=== PATIENT | male | born 1945 | race African-American/Black ===

== ENCOUNTER 2021-08-23 12:14 | Inpatient (IN) | payer BC, MEDICARE ==
[~2021-08-23] VITALS: Ht 175.3 cm; Wt 68.0 kg
[2021-08-23 00:30] VITALS: BP 131/90
[2021-08-23] MEDS ORDERED: MAGNESIUM 2 G PREMIX 50 ML IV ONE (12:45)
[2021-08-23] MEDS ORDERED: METHYLPREDNISOLONE SOD SUCC 125 MG/2 ML VIAL IV ONE (12:45)
[2021-08-23 13:11] LABS: BASOPHILS % 0.6 % (0.0-2.0); EOSINOPHILS % 3.3 % (0.0-5.0); HEMATOCRIT. 45.5 % (42.0-52.0); HEMOGLOBIN. 14.7 g/dL (14.0-18.0); LYMPHOCYTES % 14.7 % (20.0-50.0); MEAN CORPUSCULAR HEMOGLOBIN 28.9 pg (28.0-32.0); MEAN CORPUSCULAR VOLUME 89.5 fL (80.0-94.0); MEAN PLATELET VOLUME 7.8 fl (7.4-10.4); MONOCYTES % 7.1 % (2.0-8.0); NEUTROPHILS % 74.3 % (40.0-76.0); PLATELET 328 x1000/uL (130-400); RED BLOOD CELL COUNT 5.08 mill/uL (4.7-6.1); RED CELL DISTRIBUTION WIDTH 13.7 % (11.6-14.6)
[2021-08-23 13:20] LABS: CHLORIDE 111 mEq/L (98-107)
[2021-08-23] MEDS ORDERED: CLONIDINE 0.1MG TABLET PO PRN (15:00)
[2021-08-23] MEDS ORDERED: DOCUSATE SODIUM 100MG CAPSULE PO PRN (15:00)
[2021-08-23] MEDS ORDERED: IPRATROPIUM/ALBUTEROL 0.5-3(2.5)MG/3ML NEB NEB PRN (15:00)
[2021-08-23] MEDS ORDERED: ACETAMINOPHEN 325MG TABLET PO PRN ×2 (15:00)
[2021-08-23] MEDS ORDERED: ZOLPIDEM TARTRATE 5MG TABLET PO PRN (15:00)
[2021-08-23] MEDS ORDERED: NITROGLYCERIN 0.4MG TABLET SL SL PRN (15:00)
[2021-08-23] MEDS ORDERED: TRAMADOL 50MG TABLET PO PRN (15:00)
[2021-08-23] MEDS ORDERED: LORAZEPAM 0.5MG TABLET PO PRN (15:00)
[2021-08-23] MEDS ORDERED: ONDANSETRON HCL 4MG/2ML INJ IV PRN (15:00)
[2021-08-23] MEDS ORDERED: MAGNESIUM/ALUMINUM HYDROXIDE/SIMETHICONE 30ML UDC PO PRN (15:00)
[2021-08-23] MEDS ORDERED: GUAIFENESIN 200MG/10ML SUGAR FREE UDC PO PRN (15:00)
[2021-08-23] MEDS ORDERED: NALOXONE HCL 0.4MG/ML VIAL IV PRN (15:15)
[2021-08-23] MEDS: LEVOFLOXACIN 500MG PREMIX 100 ML IV SCH (15:20)
[2021-08-23 15:53] LABS: *BARBITURATES SCREEN URINE NEGATIVE (NEGATIVE); *BENZODIAZEPINES SCREEN URINE NEGATIVE (NEGATIVE); *COCAINE SCREEN URINE NEGATIVE (NEGATIVE)
[2021-08-23 15:54] LABS: *AMPHETAMINES SCREEN URINE NEGATIVE (NEGATIVE); CANNABINOID URINE SCREEN NEGATIVE (NEGATIVE); METHADONE URINE SCREEN NEGATIVE (NEGATIVE); OPIATES URINE SCREEN NEGATIVE (NEGATIVE); PHENCYCLIDINE URINE SCREEN NEGATIVE (NEGATIVE)
[2021-08-23] MEDS: ENOXAPARIN 40MG/0.4ML SYR SUBCUT SCH (15:56)
[2021-08-23] MEDS ORDERED: DEXTROSE 50% WATER 50ML SYRINGE IV PRN (18:45)
[2021-08-23] MEDS: IPRATROPIUM/ALBUTEROL 0.5-3(2.5)MG/3ML NEB HHN SCH (18:51)
[2021-08-23] MEDS: INSULIN LISPRO 100 UNITS/ML SUBCUT SCH (21:00)
[2021-08-23] MEDS: BLOOD SUGAR DIAGNOSTIC STRIP TEST SCH (21:51)
[2021-08-23] MEDS: FUROSEMIDE 40MG/4ML VIAL IVP SCH (22:07)
[2021-08-23] MEDS: ASCORBIC ACID 500 MG TABLET PO SCH (22:08)
[2021-08-23] MEDS: SPIRONOLACTONE 25MG TABLET PO SCH (22:08)
[2021-08-23] MEDS: FAMOTIDINE 20MG TABLET PO SCH (22:09)
[2021-08-23] MEDS: METHYLPREDNISOLONE SOD SUCC 125 MG/2 ML VIAL IV SCH (22:10)
[2021-08-24] VITALS: BP 136/82
[2021-08-24 00:14] LABS: CREATINE KINASE 39 IU/L (39-308)
[2021-08-24 00:15] LABS: CREATINE KINASE MB FRACTION < 1.0 ng/mL (0.5-3.6)
[2021-08-24] MEDS ORDERED: AMLO5TAB88 PO (03:33)
[2021-08-24] MEDS ORDERED: PROP80TA4 PO (03:33)
[2021-08-24 04:00] VITALS: BP 131/98
[2021-08-24] MEDS: METHYLPREDNISOLONE SOD SUCC 125 MG/2 ML VIAL IV SCH ×3 (06:03→21:01)
[2021-08-24] MEDS: BLOOD SUGAR DIAGNOSTIC STRIP TEST SCH ×4 (06:14→21:01)
[2021-08-24 06:38] LABS: BASOPHILS % 0.1 % (0.0-2.0); HEMATOCRIT. 43.8 % (42.0-52.0); HEMOGLOBIN. 14.8 g/dL (14.0-18.0); LYMPHOCYTES % 9.9 % (20.0-50.0); MEAN CORPUSCULAR HEMOGLOBIN 30.2 pg (28.0-32.0); MEAN CORPUSCULAR VOLUME 89.2 fL (80.0-94.0); MEAN PLATELET VOLUME 8.1 fl (7.4-10.4); MONOCYTES % 1.4 % (2.0-8.0); NEUTROPHILS % 88.6 % (40.0-76.0); PLATELET 316 x1000/uL (130-400); RED BLOOD CELL COUNT 4.91 mill/uL (4.7-6.1); RED CELL DISTRIBUTION WIDTH 13.5 % (11.6-14.6)
[2021-08-24] MEDS: INSULIN LISPRO 100 UNITS/ML SUBCUT SCH ×4 (07:10→21:00)
[2021-08-24] MEDS: IPRATROPIUM/ALBUTEROL 0.5-3(2.5)MG/3ML NEB HHN SCH ×4 (07:40→21:40)
[2021-08-24 07:47] LABS: CHLORIDE 107 mEq/L (98-107)
[2021-08-24 08:00] VITALS: BP 135/84
[2021-08-24 08:02] LABS: PHOSPHORUS 4.7 mg/dL (2.5-4.9)
[2021-08-24 08:03] LABS: CREATINE KINASE 35 IU/L (39-308)
[2021-08-24 08:08] LABS: CREATINE KINASE MB FRACTION < 1.0 ng/mL (0.5-3.6)
[2021-08-24] MEDS ORDERED: MECL-217 PO (08:16)
[2021-08-24] MEDS ORDERED: PROP40TA7 PO (08:16)
[2021-08-24] MEDS ORDERED: METF-414 MT (08:16)
[2021-08-24] MEDS ORDERED: AMLO10TA80 MT (08:16)
[2021-08-24] MEDS ORDERED: PRED5TAB48 PO (08:16)
[2021-08-24] MEDS ORDERED: P20 MT (08:16)
[2021-08-24] MEDS: CHOLECALCIFEROL (D3) 1000 UNIT TABLET PO SCH (10:02)
[2021-08-24] MEDS: SPIRONOLACTONE 25MG TABLET PO SCH ×2 (10:02→21:01)
[2021-08-24] MEDS: FAMOTIDINE 20MG TABLET PO SCH ×2 (10:02→21:04)
[2021-08-24] MEDS: ASPIRIN 325MG EC TABLET PO SCH (10:02)
[2021-08-24] MEDS: ZINC SULFATE 220 MG ( 50 ) CAPSULE PO SCH (10:02)
[2021-08-24] MEDS: ASCORBIC ACID 500 MG TABLET PO SCH ×2 (10:02→21:01)
[2021-08-24] MEDS: FUROSEMIDE 40MG/4ML VIAL IVP SCH ×2 (10:03→21:00)
[2021-08-24 12:00] VITALS: BP 134/84
[2021-08-24 16:00] VITALS: BP 142/86
[2021-08-24] MEDS: ENOXAPARIN 40MG/0.4ML SYR SUBCUT SCH (16:40)
[2021-08-24] MEDS: LEVOFLOXACIN 500MG PREMIX 100 ML IV SCH (17:11)
[2021-08-24 19:43] VITALS: BP 130/77
[2021-08-25] VITALS: BP 102/56
[2021-08-25] MEDS: IPRATROPIUM/ALBUTEROL 0.5-3(2.5)MG/3ML NEB HHN SCH ×6 (00:25→21:51)
[2021-08-25 04:00] VITALS: BP 133/85
[2021-08-25] MEDS: METHYLPREDNISOLONE SOD SUCC 125 MG/2 ML VIAL IV SCH ×3 (05:32→21:25)
[2021-08-25] MEDS: BLOOD SUGAR DIAGNOSTIC STRIP TEST SCH ×4 (06:29→21:25)
[2021-08-25] MEDS: INSULIN LISPRO 100 UNITS/ML SUBCUT SCH ×4 (06:35→21:25)
[2021-08-25 08:00] VITALS: BP 100/55
[2021-08-25] MEDS: ASCORBIC ACID 500 MG TABLET PO SCH ×2 (09:55→21:24)
[2021-08-25] MEDS: FAMOTIDINE 20MG TABLET PO SCH ×2 (09:55→21:24)
[2021-08-25] MEDS: FUROSEMIDE 40MG/4ML VIAL IVP SCH (09:55)
[2021-08-25] MEDS: ASPIRIN 325MG EC TABLET PO SCH (09:55)
[2021-08-25] MEDS: CHOLECALCIFEROL (D3) 1000 UNIT TABLET PO SCH (09:55)
[2021-08-25] MEDS: ZINC SULFATE 220 MG ( 50 ) CAPSULE PO SCH (09:58)
[2021-08-25] MEDS: LEVOFLOXACIN 500MG TABLET PO SCH (10:00)
[2021-08-25] MEDS: SPIRONOLACTONE 25MG TABLET PO SCH (10:00)
[2021-08-25 12:00] VITALS: BP 127/79
[2021-08-25 16:00] VITALS: BP 114/71
[2021-08-25] MEDS: ENOXAPARIN 40MG/0.4ML SYR SUBCUT SCH (18:50)
[2021-08-25 20:00] VITALS: BP 142/91
[2021-08-26] VITALS (7 sets, daily range): BP systolic 104–131; BP diastolic 69–90
[2021-08-26] MEDS: IPRATROPIUM/ALBUTEROL 0.5-3(2.5)MG/3ML NEB HHN SCH ×3 (01:20→09:04)
[2021-08-26] MEDS: METHYLPREDNISOLONE SOD SUCC 125 MG/2 ML VIAL IV SCH ×3 (05:13→20:59)
[2021-08-26] MEDS: INSULIN LISPRO 100 UNITS/ML SUBCUT SCH ×4 (06:24→20:59)
[2021-08-26] MEDS: BLOOD SUGAR DIAGNOSTIC STRIP TEST SCH ×4 (06:24→20:59)
[2021-08-26] MEDS: ASPIRIN 325MG EC TABLET PO SCH (08:57)
[2021-08-26] MEDS: FAMOTIDINE 20MG TABLET PO SCH ×2 (08:58→20:59)
[2021-08-26] MEDS: CHOLECALCIFEROL (D3) 1000 UNIT TABLET PO SCH (08:58)
[2021-08-26] MEDS: ZINC SULFATE 220 MG ( 50 ) CAPSULE PO SCH (08:58)
[2021-08-26] MEDS: ASCORBIC ACID 500 MG TABLET PO SCH ×2 (08:59→20:59)
[2021-08-26] MEDS: LEVOFLOXACIN 500MG TABLET PO SCH (12:02)
[2021-08-26] MEDS: ENOXAPARIN 40MG/0.4ML SYR SUBCUT SCH (15:17)
[2021-08-27] VITALS: BP 118/77
[2021-08-27 04:00] VITALS: BP 101/67
[2021-08-27] MEDS: BLOOD SUGAR DIAGNOSTIC STRIP TEST SCH (07:02)
[2021-08-27] MEDS: INSULIN LISPRO 100 UNITS/ML SUBCUT SCH (07:02)
[2021-08-27] MEDS: METHYLPREDNISOLONE SOD SUCC 125 MG/2 ML VIAL IV SCH (07:11)
[2021-08-27 08:00] VITALS: BP 121/90
[2021-08-27] MEDS: CHOLECALCIFEROL (D3) 1000 UNIT TABLET PO SCH (08:29)
[2021-08-27] MEDS: ASPIRIN 325MG EC TABLET PO SCH (08:29)
[2021-08-27] MEDS: FAMOTIDINE 20MG TABLET PO SCH (08:29)
[2021-08-27] MEDS: ZINC SULFATE 220 MG ( 50 ) CAPSULE PO SCH (08:29)
[2021-08-27] MEDS: ASCORBIC ACID 500 MG TABLET PO SCH (08:29)
[2021-08-27] MEDS: IPRATROPIUM/ALBUTEROL 0.5-3(2.5)MG/3ML NEB HHN SCH (08:47)
== END 2021-08-27 10:15 | disposition home or self-care (01) | DRG 291 ==
LOC: ER 12:14 → 8WST 14:02 → SUPCPDRO 14:57 → ENRESERV 19:14 → 8WST 20:58
PROVIDERS: ADMIT Internal Medicine; ATTEND Internal Medicine
DX: I11.0 Hypertensive heart disease with heart failure (principal); J96.01 Acute respiratory failure with hypoxia; I50.33 Acute on chronic diastolic (congestive) heart failure; J44.1 Chronic obstructive pulmonary disease with (acute) exacerbation; E44.0 Moderate protein-calorie malnutrition; E84.9 Cystic fibrosis, unspecified; Z20.822 Contact with and (suspected) exposure to COVID-19; E11.9 Type 2 diabetes mellitus without complications; E78.00 Pure hypercholesterolemia, unspecified; Z68.22 Body mass index [BMI] 22.0-22.9, adult; Z79.4 Long term (current) use of insulin; J84.10 Pulmonary fibrosis, unspecified
CPT/HCPCS: 36415; 71045; 80053; 80305; 82550; 82553; 82962; 83735; 83880; 84100; 84484; 85025; 87426; 93005; 93306; 93970; 94640; 97161; 97166; 99291; J1650; J1815; J1940; J1956; J2930; J3475

== ENCOUNTER 2022-11-18 18:12 | Inpatient (IN) | payer MEDICARE, BC ==
[~2022-11-18] VITALS: Ht 180.3 cm; Wt 69.9 kg
[~2022-11-18 18:12] MED LIST: AMLO10TA80 MT; MECL-217 PO; METF-414 MT; P20 MT; PRED5TAB48 PO; PROP40TA7 PO
[2022-11-18 19:02] LABS: BASOPHILS % 0.5 % (0.0-2.0); HEMATOCRIT. 40.6 % (42.0-52.0); MEAN CORPUSCULAR HEMOGLOBIN 29.4 pg (28.0-32.0); MEAN PLATELET VOLUME 8.3 fl (7.4-10.4); MONOCYTES % 4.6 % (2.0-8.0); NEUTROPHILS % 84.9 % (40.0-76.0); PLATELET 309 x1000/uL (130-400); RED BLOOD CELL COUNT 4.42 mill/uL (4.7-6.1); RED CELL DISTRIBUTION WIDTH 15.4 % (11.6-14.6)
[2022-11-18 19:08] LABS: CHLORIDE 107 mEq/L (98-107)
[2022-11-18] MEDS ORDERED: IPRATROPIUM BROMIDE (0.02%) 0.5MG/2.5ML NEB HHN STA (19:42)
[2022-11-18] MEDS ORDERED: ALBUTEROL (0.083%) 2.5MG/3ML NEB HHN STA (19:42)
[2022-11-18] MEDS ORDERED: METHYLPREDNISOLONE SOD SUCC 125 MG/2 ML VIAL IV STA (19:42)
[2022-11-18] MEDS ORDERED: PIPERACILLIN/TAZOBACTAM 3.375GM/50ML PREMIX IV ONE (19:45)
[2022-11-18] MEDS ORDERED: PIPERACILLIN/TAZ 3.375G PREMIX 50 ML IV NR (19:45)
[2022-11-18] MEDS ORDERED: VANCOMYCIN 1.25GM PMX (XELLIA) 250 ML IV SCH (19:45)
[2022-11-18 19:54] LABS: BG BASE EXCESS 3.2 mmol/L (-2.0-2.0); BG CARBOXYHEMOGLOBIN 0.7 % (0.5-1.5); BG DEOXYHEMOGLOBIN 1.4 % (0.0-5.0); BG FRACTION INSPIRED OXYGEN 100; BG METHEMOGLOBIN 0.3 % (0.0-1.5); BG OXYGEN SATURATION 98.6 % (92.0-98.5); BG OXYHEMOGLOBIN 97.6 % (94.0-97.0); BG PCO2 43.2 mmHg (35.0-45.0); BG PH 7.429 (7.350-7.450); BG SAMPLE SITE LEFT BRACHIAL; BG TOTAL HEMOGLOBIN 13.8 g/dL (12.0-18.0); BG VENT MODE MASK - NRB
[2022-11-19] MEDS ORDERED: LORAZEPAM 2MG/ML CPJ IV PRN (01:30)
[2022-11-19] MEDS ORDERED: CLONIDINE 0.1MG TABLET PO PRN (01:30)
[2022-11-19] MEDS ORDERED: ENOXAPARIN 40MG/0.4ML SYR SUBCUT SCH (01:30)
[2022-11-19] MEDS ORDERED: MAGNESIUM/ALUMINUM HYDROXIDE/SIMETHICONE 30ML UDC PO PRN (01:30)
[2022-11-19] MEDS ORDERED: ACETAMINOPHEN 325MG TABLET PO PRN ×2 (01:30)
[2022-11-19] MEDS ORDERED: IPRATROPIUM/ALBUTEROL 0.5-3(2.5)MG/3ML NEB HHN PRN (01:30)
[2022-11-19] MEDS ORDERED: ALBUTEROL (0.083%) 2.5MG/3ML NEB HHN PRN ×2 (01:45)
[2022-11-19] MEDS ORDERED: IPRATROPIUM BROMIDE (0.02%) 0.5MG/2.5ML NEB HHN PRN ×2 (01:45)
[2022-11-19] MEDS ORDERED: DEXTROSE 50% WATER 50ML SYRINGE IV PRN (03:15)
[2022-11-19 05:29] LABS: CHLORIDE 110 mEq/L (98-107)
[2022-11-19] MEDS: METHYLPREDNISOLONE SOD SUCC 125 MG/2 ML VIAL IV SCH ×3 (07:01→22:21)
[2022-11-19] MEDS: BRIMONIDINE 0.2% OPHTH DROPS 5ML EACHEYE SCH ×3 (07:01→21:08)
[2022-11-19] MEDS: AZITHROMYCIN 500 MG in DEXT 5% WATER 250 ML IV SCH (07:01)
[2022-11-19] MEDS: INSULIN LISPRO 100 UNITS/ML SUBCUT SCH ×4 (07:01→22:02)
[2022-11-19] MEDS: BLOOD SUGAR DIAGNOSTIC STRIP TEST SCH ×4 (07:01→21:55)
[2022-11-19] MEDS ORDERED: OFEV 150 MG PO SCH (09:00)
[2022-11-19] MEDS ORDERED: SODIUM POLYSTYRENE SULFONATE 15 G/60 ML BOT PO NR (09:15)
[2022-11-19 10:00] VITALS: BP 147/100
[2022-11-19 12:00] VITALS: BP 136/95
[2022-11-19] MEDS: FUROSEMIDE 40MG/4ML VIAL IV SCH ×2 (13:52→17:56)
[2022-11-19] MEDS: APIXABAN 5 MG TABLET PO SCH ×2 (13:52→17:56)
[2022-11-19] MEDS: TAMSULOSIN HCL 0.4MG SR CAPSULE PO SCH (13:56)
[2022-11-19] MEDS: AMLODIPINE 10MG TABLET PO SCH (13:56)
[2022-11-19 20:00] VITALS: BP 104/78
[2022-11-19] MEDS ORDERED: P20 MT (20:10)
[2022-11-19] MEDS: LATANOPROST 0.005% OPHTH DROPS 2.5ML BOTHEYE SCH (21:08)
[2022-11-19] MEDS: ATORVASTATIN CALCIUM 20MG TABLET PO SCH (21:08)
[2022-11-19] MEDS ORDERED: NINT150C PO (21:32)
[2022-11-19] MEDS ORDERED: Eliquis PO (22:32)
[2022-11-19] MEDS ORDERED: PRED15SO23 PO (22:38)
[2022-11-19] MEDS ORDERED: PROP80CA59 PO (22:38)
[2022-11-19] MEDS ORDERED: PROP20TA7 PO (22:38)
[2022-11-19] MEDS ORDERED: PRED-276 PO (22:40)
[2022-11-20] VITALS: BP 114/82
[2022-11-20 05:00] VITALS: BP 131/90
[2022-11-20] MEDS: BRIMONIDINE 0.2% OPHTH DROPS 5ML EACHEYE SCH ×3 (06:11→21:32)
[2022-11-20] MEDS: METHYLPREDNISOLONE SOD SUCC 125 MG/2 ML VIAL IV SCH ×3 (06:12→21:31)
[2022-11-20] MEDS: AZITHROMYCIN 500 MG in DEXT 5% WATER 250 ML IV SCH (06:12)
[2022-11-20] MEDS: BLOOD SUGAR DIAGNOSTIC STRIP TEST SCH ×4 (07:40→21:00)
[2022-11-20 08:00] VITALS: BP 129/83
[2022-11-20] MEDS: FUROSEMIDE 40MG/4ML VIAL IV SCH ×2 (08:50→17:56)
[2022-11-20] MEDS: AMLODIPINE 10MG TABLET PO SCH (08:51)
[2022-11-20] MEDS: APIXABAN 5 MG TABLET PO SCH ×2 (08:51→17:56)
[2022-11-20] MEDS: DORZOLAMIDE 2% OPHTH 10 ML BOTTLE EACHEYE SCH ×4 (08:51→17:56)
[2022-11-20] MEDS: TAMSULOSIN HCL 0.4MG SR CAPSULE PO SCH (08:51)
[2022-11-20 08:52] LABS: HEMATOCRIT. 37.9 % (42.0-52.0); HEMOGLOBIN. 12.4 g/dL (14.0-18.0); MEAN CORPUSCULAR HEMOGLOBIN 29.4 pg (28.0-32.0); MEAN CORPUSCULAR VOLUME 89.6 fL (80.0-94.0); MEAN PLATELET VOLUME 8.7 fl (7.4-10.4); PLATELET 281 x1000/uL (130-400); RED BLOOD CELL COUNT 4.23 mill/uL (4.7-6.1); RED CELL DISTRIBUTION WIDTH 14.9 % (11.6-14.6)
[2022-11-20] MEDS: INSULIN LISPRO 100 UNITS/ML SUBCUT SCH ×4 (09:31→21:00)
[2022-11-20 09:33] LABS: CHLORIDE 104 mEq/L (98-107); T4 FREE 0.88 ng/dL (0.76-1.46)
[2022-11-20 10:09] LABS: PLATELET ESTIMATE NORMAL
[2022-11-20 12:00] VITALS: BP 103/68
[2022-11-20 16:00] VITALS: BP 100/62
[2022-11-20 20:00] VITALS: BP 110/71
[2022-11-20] MEDS: OFEV 150 MG PO SCH (21:00)
[2022-11-20] MEDS: LATANOPROST 0.005% OPHTH DROPS 2.5ML BOTHEYE SCH (21:32)
[2022-11-20] MEDS: ATORVASTATIN CALCIUM 20MG TABLET PO SCH (21:37)
[2022-11-21 00:05] VITALS: BP 137/87
[2022-11-21 04:00] VITALS: BP 122/89
[2022-11-21] MEDS: BRIMONIDINE 0.2% OPHTH DROPS 5ML EACHEYE SCH ×3 (05:21→21:38)
[2022-11-21] MEDS: AZITHROMYCIN 500 MG in DEXT 5% WATER 250 ML IV SCH (05:21)
[2022-11-21] MEDS: METHYLPREDNISOLONE SOD SUCC 125 MG/2 ML VIAL IV SCH ×3 (05:21→21:38)
[2022-11-21] MEDS: BLOOD SUGAR DIAGNOSTIC STRIP TEST SCH ×4 (05:25→21:00)
[2022-11-21] MEDS: INSULIN LISPRO 100 UNITS/ML SUBCUT SCH ×4 (05:29→21:00)
[2022-11-21 08:07] LABS: HEMATOCRIT. 36.6 % (42.0-52.0); MEAN CORPUSCULAR HEMOGLOBIN 29.2 pg (28.0-32.0); MEAN CORPUSCULAR VOLUME 89.2 fL (80.0-94.0); MEAN PLATELET VOLUME 8.5 fl (7.4-10.4); PLATELET 281 x1000/uL (130-400); RED CELL DISTRIBUTION WIDTH 14.9 % (11.6-14.6)
[2022-11-21 08:39] LABS: CHLORIDE 101 mEq/L (98-107)
[2022-11-21] MEDS: TAMSULOSIN HCL 0.4MG SR CAPSULE PO SCH (09:19)
[2022-11-21] MEDS: DORZOLAMIDE 2% OPHTH 10 ML BOTTLE EACHEYE SCH ×2 (09:19→17:14)
[2022-11-21] MEDS: AMLODIPINE 10MG TABLET PO SCH (09:20)
[2022-11-21] MEDS: APIXABAN 5 MG TABLET PO SCH ×2 (09:20→17:14)
[2022-11-21] MEDS ORDERED: BENZONATATE 100MG CAPSULE PO PRN (09:30)
[2022-11-21 09:32] LABS: PLATELET ESTIMATE NORMAL
[2022-11-21] MEDS ORDERED: POTASSIUM CHLORIDE 20MEQ TABLET SR PO NR (11:15)
[2022-11-21 12:00] VITALS: BP 114/78
[2022-11-21 16:00] VITALS: BP 116/77
[2022-11-21 16:30] LABS: BG BASE EXCESS 7.5 mmol/L (-2.0-2.0); BG FRACTION INSPIRED OXYGEN 100; BG HCO3 ACT 33.5 mmol/L (22.0-26.0); BG PCO2 52.3 mmHg (35.0-45.0); BG PH 7.425 (7.350-7.450); BG SAMPLE SITE LEFT BRACHIAL; BG VENT MODE MASK - NRB
[2022-11-21 20:00] VITALS: BP 116/85
[2022-11-21] MEDS: OFEV 150 MG PO SCH (21:00)
[2022-11-21] MEDS: LATANOPROST 0.005% OPHTH DROPS 2.5ML BOTHEYE SCH (21:38)
[2022-11-21] MEDS: ATORVASTATIN CALCIUM 20MG TABLET PO SCH (21:38)
[2022-11-22 00:01] VITALS: BP 122/84
[2022-11-22 04:00] VITALS: BP 139/92
[2022-11-22] MEDS: METHYLPREDNISOLONE SOD SUCC 125 MG/2 ML VIAL IV SCH ×2 (05:21→14:53)
[2022-11-22] MEDS: BRIMONIDINE 0.2% OPHTH DROPS 5ML EACHEYE SCH ×3 (05:21→21:33)
[2022-11-22] MEDS: AZITHROMYCIN 500 MG in DEXT 5% WATER 250 ML IV SCH (05:22)
[2022-11-22] MEDS: BLOOD SUGAR DIAGNOSTIC STRIP TEST SCH ×4 (05:26→21:25)
[2022-11-22] MEDS: INSULIN LISPRO 100 UNITS/ML SUBCUT SCH ×4 (05:29→21:32)
[2022-11-22 06:14] LABS: HEMATOCRIT. 36.5 % (42.0-52.0); HEMOGLOBIN. 12.1 g/dL (14.0-18.0); MEAN CORPUSCULAR HEMOGLOBIN 29.7 pg (28.0-32.0); MEAN CORPUSCULAR VOLUME 89.7 fL (80.0-94.0); MEAN PLATELET VOLUME 8.6 fl (7.4-10.4); PLATELET 300 x1000/uL (130-400); RED BLOOD CELL COUNT 4.07 mill/uL (4.7-6.1); RED CELL DISTRIBUTION WIDTH 14.6 % (11.6-14.6)
[2022-11-22 07:51] LABS: CHLORIDE 103 mEq/L (98-107)
[2022-11-22] MEDS: DORZOLAMIDE 2% OPHTH 10 ML BOTTLE EACHEYE SCH ×2 (08:51→16:30)
[2022-11-22] MEDS: AMLODIPINE 10MG TABLET PO SCH (08:54)
[2022-11-22] MEDS: TAMSULOSIN HCL 0.4MG SR CAPSULE PO SCH (08:56)
[2022-11-22] MEDS: POTASSIUM CHLORIDE 20MEQ TABLET SR PO SCH (08:56)
[2022-11-22] MEDS: APIXABAN 5 MG TABLET PO SCH ×2 (08:56→16:30)
[2022-11-22 10:29] LABS: PLATELET ESTIMATE NORMAL
[2022-11-22 12:00] VITALS: BP 120/82
[2022-11-22 16:00] VITALS: BP 119/80
[2022-11-22 20:00] VITALS: BP 116/81
[2022-11-22] MEDS: OFEV 150 MG PO SCH (21:00)
[2022-11-22] MEDS: LATANOPROST 0.005% OPHTH DROPS 2.5ML BOTHEYE SCH (21:33)
[2022-11-22] MEDS: METHYLPREDNISOLONE SOD SUCC 40 MG/ML VIAL IV SCH (21:33)
[2022-11-22] MEDS: MENTHOL/LANOLIN/CALAMINE/ZN OX OINT 71GM TOP SCH (21:33)
[2022-11-22] MEDS: ATORVASTATIN CALCIUM 20MG TABLET PO SCH (21:35)
[2022-11-23] VITALS (7 sets, daily range): BP systolic 95–137; BP diastolic 43–86
[2022-11-23 05:43] LABS: HEMATOCRIT. 39.5 % (42.0-52.0); MEAN CORPUSCULAR HEMOGLOBIN 29.3 pg (28.0-32.0); MEAN CORPUSCULAR VOLUME 89.4 fL (80.0-94.0); MEAN PLATELET VOLUME 8.4 fl (7.4-10.4); PLATELET 331 x1000/uL (130-400); RED BLOOD CELL COUNT 4.42 mill/uL (4.7-6.1); RED CELL DISTRIBUTION WIDTH 14.7 % (11.6-14.6)
[2022-11-23] MEDS: BRIMONIDINE 0.2% OPHTH DROPS 5ML EACHEYE SCH ×3 (06:02→21:48)
[2022-11-23] MEDS: AZITHROMYCIN 500 MG in DEXT 5% WATER 250 ML IV SCH (06:03)
[2022-11-23] MEDS: BLOOD SUGAR DIAGNOSTIC STRIP TEST SCH ×4 (06:11→21:47)
[2022-11-23] MEDS: POTASSIUM CHLORIDE 20MEQ TABLET SR PO SCH (09:44)
[2022-11-23] MEDS: METHYLPREDNISOLONE SOD SUCC 40 MG/ML VIAL IV SCH ×2 (09:44→21:47)
[2022-11-23] MEDS: DORZOLAMIDE 2% OPHTH 10 ML BOTTLE EACHEYE SCH ×2 (09:44→17:15)
[2022-11-23] MEDS: INSULIN LISPRO 100 UNITS/ML SUBCUT SCH ×4 (09:44→21:51)
[2022-11-23] MEDS: MENTHOL/LANOLIN/CALAMINE/ZN OX OINT 71GM TOP SCH ×2 (09:45→17:16)
[2022-11-23] MEDS: APIXABAN 5 MG TABLET PO SCH ×2 (09:45→17:17)
[2022-11-23] MEDS: AMLODIPINE 10MG TABLET PO SCH (09:45)
[2022-11-23] MEDS: TAMSULOSIN HCL 0.4MG SR CAPSULE PO SCH (09:45)
[2022-11-23 14:06] LABS: NUCLEATED RED BLOOD CELLS 1 /100 WBC; PLATELET ESTIMATE NORMAL
[2022-11-23] MEDS: OFEV 150 MG PO SCH (21:00)
[2022-11-23] MEDS: ATORVASTATIN CALCIUM 20MG TABLET PO SCH (21:47)
[2022-11-23] MEDS: LATANOPROST 0.005% OPHTH DROPS 2.5ML BOTHEYE SCH (21:47)
[2022-11-24] VITALS: BP 123/79
[2022-11-24 04:00] VITALS: BP 144/96
[2022-11-24] MEDS: BRIMONIDINE 0.2% OPHTH DROPS 5ML EACHEYE SCH (05:46)
[2022-11-24] MEDS: BLOOD SUGAR DIAGNOSTIC STRIP TEST SCH (06:18)
[2022-11-24 08:00] VITALS: BP 137/92
[2022-11-24] MEDS: AMLODIPINE 10MG TABLET PO SCH (09:00)
[2022-11-24] MEDS: METHYLPREDNISOLONE SOD SUCC 40 MG/ML VIAL IV SCH (09:00)
[2022-11-24] MEDS: APIXABAN 5 MG TABLET PO SCH (09:00)
[2022-11-24] MEDS: POTASSIUM CHLORIDE 20MEQ TABLET SR PO SCH (09:00)
[2022-11-24] MEDS: TAMSULOSIN HCL 0.4MG SR CAPSULE PO SCH (09:00)
[2022-11-24] MEDS: DORZOLAMIDE 2% OPHTH 10 ML BOTTLE EACHEYE SCH (09:00)
[2022-11-24] MEDS: MENTHOL/LANOLIN/CALAMINE/ZN OX OINT 71GM TOP SCH (09:01)
[2022-11-24] MEDS: INSULIN LISPRO 100 UNITS/ML SUBCUT SCH (09:11)
[2022-11-24 11:58] VITALS: BP 132/88
== END 2022-11-24 11:50 | disposition home health service (06) | DRG 196 ==
LOC: ER 18:12 → MICUSO 21:32 → 7WST 11-19 09:10
PROVIDERS: ADMIT Hospitalist; ATTEND Hospitalist
DX: J84.112 Idiopathic pulmonary fibrosis (principal); E43 Unspecified severe protein-calorie malnutrition; J96.21 Acute and chronic respiratory failure with hypoxia; E87.20 Acidosis, unspecified; E84.9 Cystic fibrosis, unspecified; H54.8 Legal blindness, as defined in USA; Z20.822 Contact with and (suspected) exposure to COVID-19; I10 Essential (primary) hypertension; E78.00 Pure hypercholesterolemia, unspecified; E11.9 Type 2 diabetes mellitus without complications; R74.01 Elevation of levels of liver transaminase levels; Z68.21 Body mass index [BMI] 21.0-21.9, adult; Z79.899 Other long term (current) drug therapy; Z79.01 Long term (current) use of anticoagulants; Z86.73 Personal history of transient ischemic attack (TIA), and cerebral infarction without residual deficits; Z90.49 Acquired absence of other specified parts of digestive tract
CPT/HCPCS: 36415; 36600; 71045; 76700; 80048; 80053; 82040; 82375; 82805; 82962; 83036; 83605; 83735; 83880; 84134; 84439; 84443; 84484; 85025; 85379; 87426; 87804; 93005; 93306; 93970; 94640; 97162; 99285; A6261; C9803; J0456; J1815; J1940; J2543; J2920; J2930; J3370; J7060

== ENCOUNTER 2022-12-16 18:08 | Inpatient (IN) | payer MEDICARE, BC ==
[~2022-12-16] VITALS: Ht 180.3 cm; Wt 68.6 kg
[~2022-12-16 18:08] MED LIST changes: +Eliquis PO; +NINT150C PO; -P20 MT; +PRED-855 PO; -PRED5TAB48 PO; +PROP20TA7 PO; -PROP40TA7 PO
[2022-12-16] MEDS ORDERED: METHYLPREDNISOLONE SOD SUCC 125 MG/2 ML VIAL IV STA (18:27)
[2022-12-16] MEDS ORDERED: ALBUTEROL (0.083%) 2.5MG/3ML NEB HHN STA (18:27)
[2022-12-16 19:08] LABS: BASOPHILS % 0.2 % (0.0-2.0); EOSINOPHILS % 0.1 % (0.0-5.0); HEMATOCRIT. 38.3 % (42.0-52.0); HEMOGLOBIN. 12.4 g/dL (14.0-18.0); LYMPHOCYTES % 7.3 % (20.0-50.0); MEAN CORPUSCULAR HEMOGLOBIN 29.8 pg (28.0-32.0); MEAN CORPUSCULAR VOLUME 92.2 fL (80.0-94.0); MONOCYTES % 3.5 % (2.0-8.0); NEUTROPHILS % 88.9 % (40.0-76.0); PLATELET 346 x1000/uL (130-400); RED BLOOD CELL COUNT 4.15 mill/uL (4.7-6.1); RED CELL DISTRIBUTION WIDTH 15.6 % (11.6-14.6)
[2022-12-16 19:14] LABS: CHLORIDE 102 mEq/L (98-107)
[2022-12-16 19:15] LABS: BG CARBOXYHEMOGLOBIN 0.6 % (0.5-1.5); BG FRACTION INSPIRED OXYGEN 100; BG HCO3 ACT 26.6 mmol/L (22.0-26.0); BG METHEMOGLOBIN 0.3 % (0.0-1.5); BG OXYHEMOGLOBIN 98.1 % (94.0-97.0); BG PCO2 41.8 mmHg (35.0-45.0); BG PH 7.422 (7.350-7.450); BG PO2 183.6 mmHg (75.0-100.0); BG SAMPLE SITE RIGHT RADIAL; BG TOTAL HEMOGLOBIN 13.1 g/dL (12.0-18.0); BG VENT MODE MASK - NRB
[2022-12-16] MEDS ORDERED: ONDANSETRON HCL 4MG/2ML INJ IV PRN (21:15)
[2022-12-16] MEDS ORDERED: CLONIDINE 0.1MG TABLET PO PRN (21:15)
[2022-12-16] MEDS ORDERED: ACETAMINOPHEN 325MG TABLET PO PRN ×2 (21:15)
[2022-12-16] MEDS ORDERED: IPRATROPIUM/ALBUTEROL 0.5-3(2.5)MG/3ML NEB HHN PRN (21:15)
[2022-12-16] MEDS ORDERED: DEXTROSE 50% WATER 50ML SYRINGE IV PRN (21:30)
[2022-12-16 21:44] LABS: D-DIMER 0.47 mg/L FEU (<0.50); INR 1.1; PROTHROMBIN TIME 11.7 sec (9.6-11.0)
[2022-12-16 21:48] LABS: PHOSPHORUS 3.1 mg/dL (2.5-4.9)
[2022-12-16 22:01] LABS: PROSTRATE SPECIFIC AG TOTAL 5.98 ng/mL (0.0-4.0)
[2022-12-16 22:14] LABS: VITAMIN B12 SERUM 1508 pg/mL (211-911)
[2022-12-16] MEDS: METHYLPREDNISOLONE SOD SUCC 40 MG/ML VIAL IV SCH (22:55)
[2022-12-16 23:17] LABS: TOTAL IRON BINDING CAPACITY 149 ug/dL (250-450)
[2022-12-16 23:18] LABS: *AMPHETAMINES SCREEN URINE NEGATIVE (NEGATIVE); *BARBITURATES SCREEN URINE NEGATIVE (NEGATIVE); *BENZODIAZEPINES SCREEN URINE NEGATIVE (NEGATIVE); *COCAINE SCREEN URINE NEGATIVE (NEGATIVE); CANNABINOID URINE SCREEN NEGATIVE (NEGATIVE); METHADONE URINE SCREEN NEGATIVE (NEGATIVE); OPIATES URINE SCREEN NEGATIVE (NEGATIVE); PHENCYCLIDINE URINE SCREEN NEGATIVE (NEGATIVE)
[2022-12-16 23:20] LABS: CREATINE KINASE 72 IU/L (39-308)
[2022-12-16 23:21] LABS: CREATINE KINASE MB FRACTION < 1.0 ng/mL (0.5-3.6)
[2022-12-17] VITALS: BP_SYST 107; BP_SYST 111; BP_DIAS 77; BP_DIAS 80
[2022-12-17 04:00] VITALS: BP 109/70
[2022-12-17] MEDS: IPRATROPIUM/ALBUTEROL 0.5-3(2.5)MG/3ML NEB HHN SCH ×5 (04:26→20:37)
[2022-12-17] MEDS: BUDESONIDE 0.5MG/2ML NEB HHN SCH ×3 (04:27→20:36)
[2022-12-17 06:16] LABS: HEMATOCRIT. 36.6 % (42.0-52.0); HEMOGLOBIN. 11.6 g/dL (14.0-18.0); MEAN CORPUSCULAR HEMOGLOBIN 29.5 pg (28.0-32.0); MEAN PLATELET VOLUME 7.9 fl (7.4-10.4); PLATELET 297 x1000/uL (130-400); RED BLOOD CELL COUNT 3.94 mill/uL (4.7-6.1); RED CELL DISTRIBUTION WIDTH 15.9 % (11.6-14.6)
[2022-12-17 06:27] LABS: CHLORIDE 103 mEq/L (98-107)
[2022-12-17 06:40] LABS: CREATINE KINASE 41 IU/L (39-308); CREATINE KINASE MB FRACTION < 1.0 ng/mL (0.5-3.6); HDL CHOLESTEROL 61 mg/dL (40-59); LDL CHOLESTEROL 48 mg/dL (5-100); T4 FREE 1.02 ng/dL (0.76-1.46)
[2022-12-17] MEDS: BLOOD SUGAR DIAGNOSTIC STRIP TEST SCH ×4 (06:50→21:00)
[2022-12-17] MEDS: METHYLPREDNISOLONE SOD SUCC 40 MG/ML VIAL IV SCH ×3 (06:50→22:05)
[2022-12-17] MEDS: METFORMIN HCL 500MG TABLET PO SCH (07:20)
[2022-12-17] MEDS: INSULIN LISPRO 100 UNITS/ML SUBCUT SCH ×4 (07:20→22:06)
[2022-12-17 08:00] VITALS: BP 118/85
[2022-12-17 08:50] LABS: BG BASE EXCESS 2.4 mmol/L (-2.0-2.0); BG CARBOXYHEMOGLOBIN 0.4 % (0.5-1.5); BG DEOXYHEMOGLOBIN 3.4 % (0.0-5.0); BG FRACTION INSPIRED OXYGEN 50; BG HCO3 ACT 27.5 mmol/L (22.0-26.0); BG METHEMOGLOBIN 0.3 % (0.0-1.5); BG OXYGEN SATURATION 96.6 % (92.0-98.5); BG OXYHEMOGLOBIN 95.9 % (94.0-97.0); BG PCO2 44.8 mmHg (35.0-45.0); BG PH 7.406 (7.350-7.450); BG PO2 86.9 mmHg (75.0-100.0); BG TOTAL HEMOGLOBIN 12.6 g/dL (12.0-18.0); BG VENT MODE MASK - SIMPLE
[2022-12-17] MEDS: FAMOTIDINE 20MG TABLET PO SCH ×2 (10:10→22:05)
[2022-12-17] MEDS: AMLODIPINE 10MG TABLET PO SCH (10:10)
[2022-12-17] MEDS: GUAIFENESIN 600MG ER TABLET PO SCH ×2 (11:22→22:05)
[2022-12-17 12:00] VITALS: BP 127/77
[2022-12-17] MEDS: AZITHROMYCIN 500 MG in DEXT 5% WATER 250 ML IV SCH (12:54)
[2022-12-17] MEDS: CEFTRIAXONE 1,000 MG in DEXTROSE 5% WATER 50 ML IV SCH (12:54)
[2022-12-17 13:18] LABS: PLATELET ESTIMATE NORMAL
[2022-12-17 16:00] VITALS: BP 115/76
[2022-12-17] MEDS: APIXABAN 5 MG TABLET PO SCH (18:00)
[2022-12-17 20:00] VITALS: BP 96/67
[2022-12-17] MEDS: ATORVASTATIN CALCIUM 40MG TABLET PO SCH (22:05)
[2022-12-18] VITALS: BP 108/75
[2022-12-18] MEDS: IPRATROPIUM/ALBUTEROL 0.5-3(2.5)MG/3ML NEB HHN SCH ×6 (00:18→20:56)
[2022-12-18 05:40] VITALS: BP 103/75
[2022-12-18] MEDS: APIXABAN 5 MG TABLET PO SCH ×2 (05:46→18:21)
[2022-12-18] MEDS: METHYLPREDNISOLONE SOD SUCC 40 MG/ML VIAL IV SCH ×3 (05:46→20:52)
[2022-12-18] MEDS: BLOOD SUGAR DIAGNOSTIC STRIP TEST SCH ×4 (06:24→20:54)
[2022-12-18] MEDS: INSULIN LISPRO 100 UNITS/ML SUBCUT SCH ×4 (07:20→20:58)
[2022-12-18 08:00] VITALS: BP 121/70
[2022-12-18] MEDS: BUDESONIDE 0.5MG/2ML NEB HHN SCH ×2 (08:53→20:56)
[2022-12-18] MEDS: AMLODIPINE 10MG TABLET PO SCH ×2 (09:00→09:18)
[2022-12-18] MEDS: METFORMIN HCL 500MG TABLET PO SCH (09:17)
[2022-12-18] MEDS: FAMOTIDINE 20MG TABLET PO SCH ×2 (09:18→20:51)
[2022-12-18] MEDS: GUAIFENESIN 600MG ER TABLET PO SCH ×2 (09:18→20:57)
[2022-12-18 12:00] VITALS: BP 114/77
[2022-12-18] MEDS: CEFTRIAXONE 1,000 MG in DEXTROSE 5% WATER 50 ML IV SCH (14:23)
[2022-12-18] MEDS: AZITHROMYCIN 500 MG in DEXT 5% WATER 250 ML IV SCH (15:11)
[2022-12-18 16:00] VITALS: BP 105/75
[2022-12-18 20:00] VITALS: BP 102/70
[2022-12-18] MEDS: ATORVASTATIN CALCIUM 40MG TABLET PO SCH (20:51)
[2022-12-19] VITALS: BP 115/74
[2022-12-19] MEDS: IPRATROPIUM/ALBUTEROL 0.5-3(2.5)MG/3ML NEB HHN SCH ×6 (00:58→21:25)
[2022-12-19 04:00] VITALS: BP 126/83
[2022-12-19] MEDS: METHYLPREDNISOLONE SOD SUCC 40 MG/ML VIAL IV SCH ×3 (05:54→21:29)
[2022-12-19] MEDS: APIXABAN 5 MG TABLET PO SCH ×2 (05:54→18:19)
[2022-12-19] MEDS: BLOOD SUGAR DIAGNOSTIC STRIP TEST SCH ×4 (06:52→21:00)
[2022-12-19 08:00] VITALS: BP 124/79
[2022-12-19] MEDS: INSULIN LISPRO 100 UNITS/ML SUBCUT SCH ×4 (08:03→21:31)
[2022-12-19] MEDS: METFORMIN HCL 500MG TABLET PO SCH (08:03)
[2022-12-19] MEDS: AMLODIPINE 10MG TABLET PO SCH ×2 (09:00→09:48)
[2022-12-19] MEDS: BUDESONIDE 0.5MG/2ML NEB HHN SCH (09:23)
[2022-12-19] MEDS: GUAIFENESIN 600MG ER TABLET PO SCH ×2 (09:48→20:26)
[2022-12-19] MEDS: AZITHROMYCIN 500 MG TABLET PO SCH (09:48)
[2022-12-19] MEDS: FAMOTIDINE 20MG TABLET PO SCH ×2 (09:48→20:26)
[2022-12-19 12:00] VITALS: BP 142/82
[2022-12-19] MEDS ORDERED: TRAMADOL 50MG TABLET PO PRN (12:00)
[2022-12-19] MEDS: CEFTRIAXONE 1,000 MG in DEXTROSE 5% WATER 50 ML IV SCH (12:06)
[2022-12-19 16:00] VITALS: BP 125/81
[2022-12-19 20:00] VITALS: BP 110/90
[2022-12-19] MEDS: ATORVASTATIN CALCIUM 40MG TABLET PO SCH (20:26)
[2022-12-19] MEDS: INSULIN GLARGINE 100 UNITS/ML SUBCUT SCH (21:30)
[2022-12-20] VITALS: BP 130/91
[2022-12-20] MEDS: IPRATROPIUM/ALBUTEROL 0.5-3(2.5)MG/3ML NEB HHN SCH ×6 (02:13→21:08)
[2022-12-20 04:00] VITALS: BP 131/85
[2022-12-20] MEDS: APIXABAN 5 MG TABLET PO SCH ×2 (06:05→17:33)
[2022-12-20] MEDS: BLOOD SUGAR DIAGNOSTIC STRIP TEST SCH ×4 (06:05→21:00)
[2022-12-20] MEDS: METHYLPREDNISOLONE SOD SUCC 40 MG/ML VIAL IV SCH ×3 (06:05→21:43)
[2022-12-20] MEDS: INSULIN LISPRO 100 UNITS/ML SUBCUT SCH ×4 (06:24→21:44)
[2022-12-20 08:00] VITALS: BP 139/95
[2022-12-20] MEDS: METFORMIN HCL 500MG TABLET PO SCH (08:07)
[2022-12-20] MEDS: AMLODIPINE 10MG TABLET PO SCH (08:10)
[2022-12-20] MEDS: FAMOTIDINE 20MG TABLET PO SCH ×2 (08:10→21:43)
[2022-12-20] MEDS: GUAIFENESIN 600MG ER TABLET PO SCH ×2 (08:10→21:43)
[2022-12-20] MEDS: AZITHROMYCIN 500 MG TABLET PO SCH (08:10)
[2022-12-20] MEDS: BUDESONIDE 0.5MG/2ML NEB HHN SCH ×2 (08:38→12:18)
[2022-12-20] MEDS ORDERED: NALOXONE HCL 0.4MG/ML VIAL IV PRN (10:15)
[2022-12-20 12:00] VITALS: BP 121/83
[2022-12-20] MEDS: CEFTRIAXONE 1,000 MG in DEXTROSE 5% WATER 50 ML IV SCH (12:21)
[2022-12-20] MEDS: NYSTATIN 100,000 UNITS/GM CREAM 15GM TOP SCH ×2 (14:35→17:34)
[2022-12-20] MEDS: MENTHOL/LANOLIN/CALAMINE/ZN OX OINT 71GM TOP SCH ×2 (14:35→17:34)
[2022-12-20 16:00] VITALS: BP 112/51
[2022-12-20 20:13] VITALS: BP 115/75
[2022-12-20] MEDS: ATORVASTATIN CALCIUM 40MG TABLET PO SCH (21:43)
[2022-12-20] MEDS: INSULIN GLARGINE 100 UNITS/ML SUBCUT SCH (21:44)
[2022-12-21] VITALS (7 sets, daily range): BP systolic 104–125; BP diastolic 60–79
[2022-12-21] MEDS: IPRATROPIUM/ALBUTEROL 0.5-3(2.5)MG/3ML NEB HHN SCH ×6 (00:25→20:57)
[2022-12-21] MEDS: METHYLPREDNISOLONE SOD SUCC 40 MG/ML VIAL IV SCH ×2 (05:30→14:18)
[2022-12-21] MEDS: APIXABAN 5 MG TABLET PO SCH ×2 (05:30→17:27)
[2022-12-21] MEDS: BLOOD SUGAR DIAGNOSTIC STRIP TEST SCH ×3 (06:20→17:27)
[2022-12-21] MEDS: METFORMIN HCL 500MG TABLET PO SCH (08:17)
[2022-12-21] MEDS: INSULIN LISPRO 100 UNITS/ML SUBCUT SCH ×3 (08:17→17:29)
[2022-12-21] MEDS: GUAIFENESIN 600MG ER TABLET PO SCH (09:37)
[2022-12-21] MEDS: AMLODIPINE 10MG TABLET PO SCH (09:38)
[2022-12-21] MEDS: AZITHROMYCIN 500 MG TABLET PO SCH (09:38)
[2022-12-21] MEDS: NYSTATIN 100,000 UNITS/GM CREAM 15GM TOP SCH ×3 (09:38→17:27)
[2022-12-21] MEDS: FAMOTIDINE 20MG TABLET PO SCH (09:38)
[2022-12-21] MEDS: MENTHOL/LANOLIN/CALAMINE/ZN OX OINT 71GM TOP SCH ×3 (09:38→17:28)
[2022-12-21] MEDS ORDERED: ZINC100T8 MT (10:14)
[2022-12-21] MEDS ORDERED: ASCO-339 MT (10:14)
[2022-12-21] MEDS ORDERED: P20 MT (10:14)
[2022-12-21] MEDS ORDERED: AZIT500T8 MT (10:14)
[2022-12-21] MEDS: CEFTRIAXONE 1,000 MG in DEXTROSE 5% WATER 50 ML IV SCH (12:51)
[2022-12-21] MEDS ORDERED: BENZONATATE 100MG CAPSULE PO PRN (15:45)
[2022-12-21] MEDS ORDERED: GUAIFENESIN/CODEINE 200-20MG/10ML UDC PO PRN (15:45)
[2022-12-21] MEDS ORDERED: GUAIFENESIN 600MG ER TABLET PO SCH (21:00)
== END 2022-12-21 23:59 | disposition home health service (06) | DRG 193 ==
LOC: ER 18:16 → 3WST 20:03 → EDBEDREQTM 20:07 → EDBEDREQ 20:07 → ENRESERV 22:45
PROVIDERS: ADMIT Internal Medicine; ATTEND Internal Medicine
DX: J18.9 Pneumonia, unspecified organism (principal); J96.21 Acute and chronic respiratory failure with hypoxia; J47.0 Bronchiectasis with acute lower respiratory infection; E44.0 Moderate protein-calorie malnutrition; I11.0 Hypertensive heart disease with heart failure; E78.00 Pure hypercholesterolemia, unspecified; G56.00 Carpal tunnel syndrome, unspecified upper limb; I27.21 Secondary pulmonary arterial hypertension; J84.112 Idiopathic pulmonary fibrosis; I50.812 Chronic right heart failure; E11.9 Type 2 diabetes mellitus without complications; D63.8 Anemia in other chronic diseases classified elsewhere; H40.9 Unspecified glaucoma; H54.8 Legal blindness, as defined in USA; R74.01 Elevation of levels of liver transaminase levels; I48.0 Paroxysmal atrial fibrillation; R74.8 Abnormal levels of other serum enzymes; Z20.822 Contact with and (suspected) exposure to COVID-19; Z79.51 Long term (current) use of inhaled steroids; Z86.73 Personal history of transient ischemic attack (TIA), and cerebral infarction without residual deficits; L89.90 Pressure ulcer of unspecified site, unspecified stage; Z79.52 Long term (current) use of systemic steroids; Z90.49 Acquired absence of other specified parts of digestive tract; Z79.899 Other long term (current) drug therapy; Z68.21 Body mass index [BMI] 21.0-21.9, adult
CPT/HCPCS: 36415; 36600; 71045; 71250; 80053; 80061; 80305; 82040; 82306; 82375; 82550; 82553; 82607; 82728; 82805; 82962; 83036; 83540; 83550; 83605; 83735; 83880; 84100; 84134; 84145; 84153; 84439; 84443; 84481; 84484; 85025; 85379; 87426; 92610; 93005; 93880; 93970; 94640; 97110; 97162; 97166; 97530; 99285; C9803; J0456; J0696; J1815; J2920; J2930; J7060; J7626; A4315; G0103